=== PATIENT | female | born 1980 | race African-American/Black ===

== ENCOUNTER 2017-06-04 05:33 | Observation (INO) | payer OTHER ==
[2017-06-01 14:50] LABS: BASOPHILS % 0.6 % (0.0-1.0); EOSINOPHILS # (AUTO) 0.1 (0.0-0.4); EOSINOPHILS % 1.4 % (0.0-6.0); HEMATOCRIT 38.5 % (34.2-44.1); HEMOGLOBIN 12.2 g/dL (12.0-16.0); LYMPHOCYTES # (AUTO) 2.3 (1.0-3.2); LYMPHOCYTES % 31.2 % (18.0-39.1); MEAN CORPUSCULAR HEMOGLOBIN 26.3 pg (28-32); MEAN CORPUSCULAR HGB CONC 31.7 g/dL (31-35); MONOCYTES # (AUTO) 0.4 (0.2-0.8); MONOCYTES % 5.3 % (4.4-11.3); NEUTROPHILS # (AUTO) 4.4 (2.1-6.9); NEUTROPHILS % 61.2 % (38.7-80.0); PLATELET COUNT 351 x10e3/uL (140-360); RED BLOOD COUNT 4.64 x10e6/uL (3.6-5.1); RED CELL DISTRIBUTION WIDTH 12.8 % (11.7-14.4)
--- NOTE | 2017-06-01 15:12 | Diagnostic Imaging Report ---
PROCEDURE: Frontal and lateral views of the chest. COMPARISON: None. INDICATIONS: PRE-OPERATIVE CHEST X-RAY FOR HYSTERECTOMY SURGERY FINDINGS: Lines/tubes: None. Lungs: The lungs are well inflated and clear. There is no evidence of pneumonia or pulmonary edema. Pleura: There is no pleural effusion or pneumothorax. Heart and mediastinum: The heart and the mediastinum are normal. Bones: No acute bony abnormality. IMPRESSION: 1. No acute cardiopulmonary abnormalities. Gordon Harris M.D. Dictated by: Gordon Harris M.D. on 06/01/2017 at 15:12 Electronically approved by: Gordon Harris M.D. on 06/01/2017 at 15:12
[2017-06-01 15:24] LABS: CLARITY,URINE SL CLOUDY (CLEAR); COLOR,URINE YELLOW (YELLOW); LEUKOCYTE ESTERASE ,URINE TRACE (NEGATIVE); NITRITE,URINE NEGATIVE (NEGATIVE); PROTEIN,URINE DIPSTICK NEGATIVE (NEGATIVE)
[2017-06-01 15:25] LABS: BILIRUBIN,URINE NEGATIVE (NEGATIVE); KETONES,URINE NEGATIVE (NEGATIVE); URINE UROBILINOGEN 0.2 mg/dL (0.2 - 1)
[2017-06-01 15:38] LABS: HIV 1&2 AB SCREEN NON-REACTIVE (NONREACTIVE)
[~2017-06-04] VITALS: Ht 165.1 cm; Wt 81.2 kg
[~2017-06-04 05:33] MED LIST: IRON
--- OUTSIDE RECORDS SUMMARY | 2017-06-04 05:35 | XMS REPORT ---
Author [facility] Address Unknown Phone Unavailable Care Team Providers Care General Operations Agent Name Role Phone ZACH DEMARCUS Unavailable Unavailable Problems This patient has no known problems. Allergies, Adverse Reactions, Alerts This patient has no known allergies or adverse reactions. Medications This patient has no known medications. Results Test Description Test Time Test Comments Text Results Atomic Results Result Comments CHEST 2 VIEWS [place] [address] Patient Name: SHA REAL MR #: [id number] : 1980 Age/Sex: 37/F Req #: [id number] Adm Physician: Ordered by: DEMARCUS SERRANO MD Report #: [id number] Location: OR Room/Bed: Procedure: [id number] DX/CHEST 2 VIEWS Exam Date: 06/01/17 Exam Time: 1446 REPORT STATUS: Signed PROCEDURE: Frontal and lateral views of the chest. COMPARISON: None. INDICATIONS: PRE-OPERATIVE CHEST X- RAY FOR HYSTERECTOMY SURGERY FINDINGS: Lines/tubes: None. Lungs: The lungs are well inflated and clear. There is no evidence of pneumonia or pulmonary edema. Pleura: There is no pleural effusion or pneumothorax. Heart and mediastinum: The heart and the mediastinum are normal. Bones: No acute bony abnormality. IMPRESSION: 1. No acute cardiopulmonary abnormalities. Duncan Scott M.D. Dictated by: Duncan Scott M.D. on 06/01/2017 at 15:12 Electronically approved by: Duncan Scott M.D. on 06/01/2017 at 15:12 Dictated By: DUNCAN SCOTT MD [id number] Transcribed By: YAZMIN on 06/01/17 1512 COPY TO: DEMARCUS SERRANO MD
[2017-06-04] MEDS ORDERED: CEFOXITIN SOD 1 GM VIAL ONE (06:31)
[2017-06-04] MEDS ORDERED: FERRALET 90 DU1 EACH (06:47)
[2017-06-04] MEDS ORDERED: BUPIVACAINE HCL 0.5% INJ 30 ML VIAL INJ ONE (08:19)
[2017-06-04] MEDS ORDERED: D5.45%NS/KCL 20MEQ 1,000 ML IV SCH (10:07)
[2017-06-04] MEDS ORDERED: ONDANSETRON HCL INJ 2 MG/ML VIAL IV PRN (10:15)
[2017-06-04] MEDS ORDERED: KETOROLAC TROMETHAMINE 30 MG/ML VIAL IM PRN (10:15)
[2017-06-04] MEDS ORDERED: DOCUSATE SODIUM 100 MG CAP PO PRN (10:15)
[2017-06-04] MEDS ORDERED: HYDROMORPHONE 0.2MG/ML-SOD CHL 30ML PCA SYRINGE IV ONE (10:25)
[2017-06-04] MEDS: HYDROMORPHONE 0.2MG/ML-SOD CHL 30ML PCA SYRINGE IV PRN (10:25)
--- NOTE | 2017-06-04 11:06 | Operative Report ---
DATE OF PROCEDURE: June 04, 2017 PREOPERATIVE DIAGNOSIS: A 37-year-old female, 2, para 2, with previous 2 sections, now having heavy painful periods and lower abdominal pain, and very large fibroid uterus about 20-24 week size. POSTOPERATIVE DIAGNOSES 1. A 37-year-old female, 2, para 2, with previous 2 sections, now having heavy painful periods and lower abdominal pain, and very large fibroid uterus about 20-24 week size. 2. Abdominal adhesions. OPERATIVE PROCEDURES DONE 1. Examination under anesthesia. 2. Total abdominal hysterectomy. 3. Adhesiolysis. UNLOADER: Dr. Kannan Diamond MD ANESTHESIA: General. FINDINGS: At the time of surgery, on EUA cervix looks normal. Had a normal Pap smear. Uterus is enlarged all the way up to the umbilicus about 20-24 week size and irregular. On laparotomy, very enlarged uterus about 24-week size. Both ovaries look normal. Both tubes look normal and saved them. There were adhesions between the anterior abdominal wall and the omentum and . ESTIMATED BLOOD LOSS: About 100 mL. URINE: Clear, about 300 mL in the Singh bag at the end of the surgery. COMPLICATIONS: None. The patient is stable in the recovery room. COUNTS: Instrument and swab counts are correct. PROCEDURE IN DETAIL: The patient was brought to the operating room and put in the supine position. General anesthesia was given without any problems. After adequate anesthesia, the patient was examined under anesthesia. The findings were as dictated above. Then she was prepped and draped in the routine fashion, and proceeded with the surgery. Then I made a subumbilical midline vertical incision and taken down to the fascia. The fascia was opened in a vertical fashion and then the recti muscles. Then identified the peritoneum and opened it and entered the abdominal cavity without any problems. There were adhesions between the omentum and the anterior abdominal wall probably from the previous C-sections. They were . After the adhesions, put in the O'Arya-O'Barros retractor and tried the pack the bowels up and put in the upper blade and the lower blade. The fundus of the uterus held with long double-toothed tenaculum. Tried to deliver through the incision, but could not deliver it because it is big. Then rolled it to the side. We could see the left ovary, tube and the round ligament. Then while retracting the abdominal wall with the help of the [place] on the lower side, identified the round ligament. Use of the LigaSure, clamped close to the uterus, cauterized and cut. Then identified the broad ligament just below the tube. Made an opening there and clamped the ovarian ligament and tube next to the uterus with the LigaSure, cauterized and cut. Had to take 2 bites because it was so big. Then tried to roll the uterus to the left, and tried to identify the right ovary. Right ovary looks normal. The fallopian tubes looked normal. Could not see the round ligament because of the tumor. It was difficult. Then held the tube with the LigaSure, clamped close to the uterus, cauterized and cut. Then the ovarian ligament was clamped close to the uterus, cauterized and cut. Then the broad ligament clamped close to the uterus, cauterized and cut. Had to take 3-4 bites to get all the way to the round ligament. The round ligament was clamped with the LigaSure close to the uterus, cauterized and cut. After that, then we could see better. Bladder flap of the peritoneum opened and extended all the way to the stumps of the round ligaments and dissected the bladder with sharp dissection, and pushed down the bladder. It went down very well without any problems. Then posteriorly the peritoneum dissected and pushed it down. The uterine vessels were identified on either side, clamped and very enlarged vessels and very vascular, probably feeding this large fibroid. They were clamped with the LigaSure close to the uterus at the internal os level, cauterized and cut. This was done on both sides. Then to make the visualization better, I did excise the upper part of the uterus along with the fibroids and removed it. Cut it with a knife and removed so that we could see better. The upper ends of the cervix and lower segment clamped with tenaculum so that we could see. Now, dissected the bladder somewhat and pushed it down. Urine is clear. The ureters are far away. The cardinal ligaments on either side clamped with straight Robert clamps close to the lower segment of the uterus and cervix and cut with the knife, and suture ligatured using a transfixation suture using 1 Vicryl. Suture tied snug and cut short. This was done in small steps, and had to take 2 bites on either side. Then the bladder was pushed down some more with sharp dissection. We went down all the way to the tip of the cervix, and the bladder was really way down. Urine was clear. The ureters are far away. I placed the right angle clamps on either side of the cervix, cut towards the cervix and the stump suture ligated using 1-0 Vicryl, and suture tied snug and held on with the hemostat. Then the anterior vaginal wall and the posterior vaginal wall cut, and removed the cervix and the lower segment of the uterus and sent for pathology separate. Then the vaginal wall closed with figure-of-8 sutures using 1 Vicryl. All the sutures tied snug and cut short. Hemostasis was satisfactory. Irrigated the pelvis twice. No active bleeding from anywhere. Ovaries looked normal. Tubes were very close to the uterus. Plan to take it out, but it was so close and she is only 37 years, and did not want to compromise the blood supply and that it why I left the tube. Both stumps were satisfactory hemostasis. Then the ureters looked normal. Urine was clear. Removed the O'Arya-O'Barros retractors. All the laps were removed. Instrument and swab counts were correct. Then closed the abdominal wall. Used PDS and closed the fascia with continuous stitches. The subcutaneous tissue approximated with 0 Vicryl. The skin approximated with 4-0 Vicryl using subcuticular stitches. Marcaine injected in the abdominal incision for postop pain relief. She tolerated the procedure very well. Estimated blood loss was 100 mL. Urine clear. The Singh catheter is in the bladder. Instrument and swab counts are correct. The patient was taken to the recovery room in stable condition. Job#: [id number]
[2017-06-04 13:49] VITALS: BP 145/85
[2017-06-04 13:52] VITALS: BP 145/85
[2017-06-04 14:03] VITALS: BP 145/85
[2017-06-04] MEDS: DEXTROSE 5%/LACTATED RINGERS 1,000 ML IV SCH (14:29)
[2017-06-04] MEDS: CEFOXITIN 2GM/ D5W 50ML 50 ML IV SCH ×2 (14:51→21:03)
[2017-06-04 15:10] VITALS: BP 125/76
[2017-06-04] MEDS ORDERED: ROCURONIUM BROMIDE 10 MG/ML 5ML VIAL ONE (17:10)
[2017-06-04] MEDS ORDERED: LIDOCAINE HCL 2% LOCAL INJ 5 ML SDV VIAL INJ ONE (17:10)
[2017-06-04] MEDS ORDERED: DEXAMETHASONE SOD PHOS INJ 4 MG/ML VIAL ONE (17:10)
[2017-06-04] MEDS ORDERED: GLYCOPYRROLATE INJ 1MG/ 5 ML SYR ONE (17:10)
[2017-06-04] MEDS ORDERED: KETOROLAC TROMETHAMINE 30 MG/ML VIAL ONE (17:10)
[2017-06-04] MEDS ORDERED: ONDANSETRON HCL INJ 2 MG/ML VIAL ONE (17:10)
[2017-06-04] MEDS ORDERED: SEVOFLURANE INHAL SOLN 250 ML PEN BTL ONE (17:10)
[2017-06-04] MEDS ORDERED: NEOSTIGMINE 5 MG/5ML SYR ONE (17:10)
[2017-06-04] MEDS ORDERED: PROPOFOL IV EMULSION 10 MG/ML 20 ML VIAL ONE (17:10)
[2017-06-04] MEDS ORDERED: KETOROLAC TROMETHAMINE 30 MG/ML VIAL IV PRN (18:45)
[2017-06-04 20:00] VITALS: BP 117/85
[2017-06-05] VITALS (7 sets, daily range): BP systolic 121–130; BP diastolic 65–87
[2017-06-05] MEDS: DEXTROSE 5%/LACTATED RINGERS 1,000 ML IV SCH ×2 (00:17→06:42)
[2017-06-05] MEDS: CEFOXITIN 2GM/ D5W 50ML 50 ML IV SCH ×2 (02:15→09:38)
[2017-06-05] MEDS: KETOROLAC TROMETHAMINE 30 MG/ML VIAL IV PRN ×2 (05:35→19:47)
[2017-06-05] MEDS: HYDROMORPHONE 0.2MG/ML-SOD CHL 30ML PCA SYRINGE IV PRN (05:43)
[2017-06-05 07:00] LABS: BASOPHILS % 0.3 % (0.0-1.0); EOSINOPHILS % 0.1 % (0.0-6.0); HEMATOCRIT 30.9 % (34.2-44.1); HEMOGLOBIN 9.9 g/dL (12.0-16.0); LYMPHOCYTES # (AUTO) 2.2 (1.0-3.2); LYMPHOCYTES % 16.9 % (18.0-39.1); MEAN CORPUSCULAR HEMOGLOBIN 26.3 pg (28-32); MONOCYTES # (AUTO) 0.9 (0.2-0.8); MONOCYTES % 6.9 % (4.4-11.3); NEUTROPHILS # (AUTO) 9.8 (2.1-6.9); NEUTROPHILS % 75.3 % (38.7-80.0); PLATELET COUNT 278 x10e3/uL (140-360); RED BLOOD COUNT 3.77 x10e6/uL (3.6-5.1); RED CELL DISTRIBUTION WIDTH 12.6 % (11.7-14.4)
[2017-06-05 07:20] LABS: BLOOD UREA NITROGEN 5 mg/dL (7-26); BUN/CREATININE RATIO 7 (6-25); CALCIUM 8.5 mg/dL (8.4-10.2); CARBON DIOXIDE 28 mmol/L (22-29); CHLORIDE 105 mmol/L (98-107); CREATININE, SERUM 0.71 mg/dL (0.57-1.11); EST GLOMERULAR FILTRATION RATE > 60 ML/MIN (60-); GLUCOSE 109 mg/dL (74-118); SODIUM 139 mmol/L (136-145)
[2017-06-05] MEDS ORDERED: IBUPROFEN 400 MG TAB PO PRN (09:45)
[2017-06-05] MEDS: HYDROCODONE/APAP 5MG-325MG TAB PO PRN ×2 (12:54→19:47)
[2017-06-05] MEDS ORDERED: MIDAZOLAM HCL 2 MG/2 ML VIAL ONE (18:32)
[2017-06-05] MEDS ORDERED: FENTANYL CITRATE/PF 100MCG/2 ML INJ ONE (18:32)
[2017-06-05] MEDS ORDERED: BISACODYL 5 MG TAB EC PO ONE (18:50)
== END 2017-06-05 21:29 | disposition home or self-care (01) ==
LOC: OR 05:33 → IMCU 12:40
PROVIDERS: ADMIT Specialist; ATTEND Specialist
DX: D25.1 Intramural leiomyoma of uterus (principal); N94.6 Dysmenorrhea, unspecified; N73.6 Female pelvic peritoneal adhesions (postinfective)
CPT/HCPCS: 36415 ×2; 49999; 58150; 71046; 80048; 81003; 81025; 84702; 85025 ×2; 86850; 86900; 87390; 88307; 88342; 93005; G0378 ×2; G0433; G0435; J0694 ×2; J1100; J1885 ×2; J2001; J2250; J2405; J7120 ×2